=== PATIENT | female | born 1955 | race Caucasian/White ===

== ENCOUNTER → 2019-03-29 | Outpatient (CLI) | payer OTHER | LOC: OD 14:50 | PROVIDERS: ATTEND Surgery | DX: N63.20 Unspecified lump in the left breast, unspecified quadrant (principal) | CPT/HCPCS: 88305; 88313; 88341; 88342 ==

== ENCOUNTER → 2019-04-09 | Outpatient (CLI) | payer OTHER ==
--- NOTE | 2019-04-14 13:52 | RADIOLOGY REPORT (SQ) ---
EXAM DESCRIPTION: MRI BREAST BILATERAL W/WO COMPLETED DATE/TIME: 04/09/2019 9:42 am REASON FOR STUDY: N63.20 UNSPECIFIED LUMP IN THE LEFT BREAST, UNSPECIFIED QUADRANT N63.20 UNSPECIFI ED LUMP IN THE LEFT BREAST, UNSPECIFIED QUAD COMPARISON: Multiple reports. There are no prior images available. PATHOLOGIC CORRELATION: Carcinoma left breast. CONTRAST TYPE AND DOSE: 20 mL Dotarem. RENAL FUNCTION: Not required TECHNIQUE: MR imaging performed with a dedicated breast coil. Pre contrast T1 and T2 weighted images . Pre contrast and post contrast enhanced T1 weighted images with fat saturation. Subtraction images, 3D thick and thin MIPS, and kinetic analysis performed on an independent workstat ion. ([employer] workstation) Magnet strength: 1.5 T LIMITATIONS: None. FINDINGS: BREAST DENSITY: b. There are scattered areas of fibroglandular density. BACKGROUND PARENCHYMAL ENHANCEMENT:Minimal. RIGHT BREAST: Silicon implants. Intracapsular rupture with linguini spine and keyhole spine. No ext racapsular rupture. No extracapsular silicone. . No enhancing masses or suspicious lesions. No cl umped, regional/segmental ductal enhancement. CHEST WALL: Normal tissue planes. No abnormal internal mammary nodes. AXILLA: Normal axillary and retro-pectoral nodes. LEFT BREAST: Silicon implants. Intracapsular rupture with linguini sign and keyhole spine. There i s no extra capsular silicon however there is fluid surrounding the implant. Surgical changes lower i nner quadrant. No enhancing or suspicious masses. No clumped, regional/segmental ductal enhancemen t. CHEST WALL: Normal tissue planes. No abnormal internal mammary nodes. AXILLA: Normal axillary and retro-pectoral nodes. OTHER:No identified liver, bone, or lung lesions. No other significant incidental findings. IMPRESSION: No enhancing more worrisome lesions in either breast. There are bilateral intra capsular silicon implant ruptures, as evidenced by linguini sign. No extra capsular rupture. There is however fluid surrounding the implant on the left. BIRAD: RIGHT BREAST: 2 Benign findings. LEFT BREAST: 6 Known biopsy-proven malignancy. Appropriate action should be taken. RECOMMENDATION: RECOMMENDED FOLLOW-UP: Treatment protocol. TECHNICAL DOCUMENTATION: JOB ID: [id number] [employer]- All Rights Reserved Reading location - IP/workstation name: [email or web address]
== END ==
LOC: RAD 08:00
PROVIDERS: ATTEND Surgery
DX: C50.912 Malignant neoplasm of unspecified site of left female breast (principal)
CPT/HCPCS: 82565; 77049; A9576

== ENCOUNTER 2019-09-21 18:20 | Emergency (ER) | payer OTHER ==
[2019-09-21] MEDS ORDERED: NORMAL SALINE 1000 ML 1,000 ML IV ONE (20:54)
--- NOTE | 2019-09-21 21:03 | ER Document Report ---
ED Medical Screen (RME) - General Chief Complaint: Near Syncope Stated Complaint: ABDOMINAL PAIN,DIARRHEA Time Seen by Provider: 09/21/19 20:50 Primary Care Provider: SULTANA SPAIN MD [Primary Care Provider] - Follow up as needed Mode of Arrival: Wheelchair Information source: Patient Notes: 64-year-old female presents with history of breast cancer just started chemo this past Monday. Reports she was okay until when she started having abdominal cramps nausea. She reports explosive diarrhea today. Patient is worried she is dehydrated. I have greeted and performed a rapid initial assessment of this patient. A comprehensive ED assessment and evaluation of the patient, analysis of test results and completion of the medical decision making process will be conducted by additional ED providers. TRAVEL OUTSIDE OF THE [place] IN LAST 30 DAYS: No - Related Data Allergies/Adverse Reactions: Sulfa (Sulfonamide Antibiotics) Allergy (Verified 09/21/19 20:42) Home Medications: lisinorpil. citalopram. Impramine. levothyroxine. valacyclovir. methocarbamol. cetirizne. omeprazole. loperamide. Vitamin C. multiple vitamin. magnesium. chloride. calcium Past Medical History - Social History Chew tobacco use (# tins/day): No Drug Abuse: None Physical Exam - Vital signs Vitals: Temp Pulse Resp BP Pulse Ox 97.4 F 124 H 32 H 117/79 100 09/21/19 18:31 09/21/19 18:31 09/21/19 18:31 09/21/19 18:31 09/21/19 18:31 Course - Vital Signs Vital signs: Temp Pulse Resp BP Pulse Ox 97.4 F 124 H 32 H 117/79 100 09/21/19 18:31 09/21/19 18:31 09/21/19 18:31 09/21/19 18:31 09/21/19 18:31 Doctor's Discharge - Discharge Referrals: SULTANA SPAIN MD [Primary Care Provider] - Follow up as needed
[2019-09-21 22:20] LABS: HEMOGLOBIN 15.8 g/dL (12.0-15.5); MEAN CORPUSCULAR HEMOGLOBIN 32.6 pg (27.0-33.4); MEAN CORPUSCULAR HGB CONC 35.1 g/dL (32.0-36.0); MEAN CORPUSCULAR VOLUME 93 fl (80-97); PLATELET COUNT 301 10^3/uL (150-450); RED BLOOD COUNT 4.85 10^6/uL (3.72-5.28); WHITE BLOOD COUNT 3.2 10^3/uL (4.0-10.5)
[2019-09-21 22:34] LABS: ALBUMIN 4.4 g/dL (3.5-5.0); ALKALINE PHOSPHATASE 118 U/L (38-126); ANION GAP 13 (5-19); ASPARTATE AMINO TRANSFERASE 41 U/L (14-36); BILIRUBIN,TOTAL 0.8 mg/dL (0.2-1.3); BLOOD UREA NITROGEN 18 mg/dL (7-20); CALCIUM 9.9 mg/dL (8.4-10.2); CARBON DIOXIDE 23 mmol/L (22-30); CHLORIDE 96 mmol/L (98-107); GLUCOSE 93 mg/dL (75-110); POTASSIUM 3.9 mmol/L (3.6-5.0); TOTAL PROTEIN 7.1 g/dL (6.3-8.2)
[2019-09-21 22:40] LABS: ABSOLUTE LYMPHOCYTES# (MANUAL) 1.4 10^3/uL (0.5-4.7); BASOPHILS % (MANUAL) 0 % (0-2); EOSINOPHILS % (MANUAL) 0 % (0-6); LYMPHOCYTES % (MANUAL) 35 % (13-45); MONOCYTES % (MANUAL) 1 % (3-13); SEGMENTED NEUTROPHILS % (MAN) 55 % (42-78); TOTAL CELLS COUNTED 100
[2019-09-21 22:41] LABS: PLATELET COMMENT ADEQUATE; POIKILOCYTOSIS SLIGHT; TEAR DROP CELLS SLIGHT; TOXIC GRANULATION SLIGHT
[2019-09-22 00:35] LABS: APPEARANCE,URINE CLEAR; BILIRUBIN,URINE NEGATIVE (NEGATIVE); COLOR,URINE STRAW; GLUCOSE, URINE NEGATIVE (NEGATIVE); KETONES,URINE NEGATIVE (NEGATIVE); LEUKOCYTE ESTERASE,URINE NEGATIVE (NEGATIVE); NITRITE,URINE NEGATIVE (NEGATIVE); PROTEIN,URINE NEGATIVE (NEGATIVE); URINE SPECIFIC GRAVITY 1.003; UROBILINOGEN,URINE NEGATIVE mg/dL (<2.0)
[2019-09-22] MEDS ORDERED: NORMAL SALINE 1000 ML 1,000 ML IV ONE (01:13)
[2019-09-22] MEDS ORDERED: LOPERAMIDE HCL 2 MG CAPSULE PO ONE (01:16)
--- NOTE | 2019-09-22 01:21 | ER Document Report ---
ED General - General Chief Complaint: Near Syncope Stated Complaint: ABDOMINAL PAIN,DIARRHEA Time Seen by Provider: 09/21/19 20:50 Primary Care Provider: SULTANA HONEYCUTT MD [Primary Care Provider] - Follow up in 1 month Mode of Arrival: Wheelchair Notes: Patient is a 64-year-old female who presents to the emergency department with a chief complaint of diarrhea and abdominal pain. She states that she started chemotherapy this past Monday. States that she was normal until 2 days ago when she ended up having some nausea, abdominal cramping, and today she ended up having diarrhea. Patient was diagnosed she is currently being treated for breast cancer. TRAVEL OUTSIDE OF THE [place] IN LAST 30 DAYS: No - Related Data Allergies/Adverse Reactions: Sulfa (Sulfonamide Antibiotics) Allergy (Verified 09/21/19 20:42) Home Medications: lisinorpil. citalopram. Impramine. levothyroxine. valacy clovir. methocarbamol. cetirizne. omeprazole. loperamide. Vitamin C. multiple vitamin. magnesium. chloride. calcium Past Medical History - General Information source: Patient - Social History Smoking Status: Never Smoker Chew tobacco use (# tins/day): No Drug Abuse: None Family History: Reviewed & Not Pertinent Patient has suicidal ideation: No Patient has homicidal ideation: No Review of Systems - Review of Systems Notes: REVIEW OF SYSTEMS: CONSTITUTIONAL : Denies recent illness. Denies recent unintentional weight loss. Denies fever, chills, or sweats. EENT: Denies eye, ear, throat, or mouth pain, discharge, or symptoms. Denies nasal or sinus congestion. CARDIOVASCULAR: Denies chest pain. RESPIRATORY: Denies shortness of breath, cough, congestion, difficulty breathing, or wheezing. GASTROINTESTINAL: See HPI. GENITOURINARY: Denies difficulty urinating, burning, blood in urine, urgency or frequency. MUSCULOSKELETAL: Denies neck and back pain. Denies joint pain or swelling. SKIN: Denies rash, itchiness, or lesions HEMATOLOGIC : Denies easy bruising or bleeding. LYMPHATIC: Denies swollen, painful, enlarged glands. NEUROLOGICAL: Denies no numbness or tingling denies weakness. Denies headache. Denies altered mental status. Denies alteration in speech. PSYCHIATRIC: Denies stress, anxiety, alteration in sleep patterns, or depression. All other systems reviewed and negative. Physical Exam - Vital signs Vitals: Temp Pulse Resp BP Pulse Ox 97.4 F 124 H 32 H 117/79 100 09/21/19 18:31 09/21/19 18:31 09/21/19 18:31 09/21/19 18:31 09/21/19 18:31 - Notes Notes: PHYSICAL EXAMINATION: GENERAL: Appears well, healthy, well-nourished, no acute distress. HEAD: Normocephalic, atraumatic. EYES: PERRL, conjunctiva normal, all extraocular movements intact, sclera nonicteric ENT: Moist mucous membranes. NECK: Supple, no noticeable swelling, redness, rash. Normal range of motion. LUNGS: Equal breath sounds bilaterally and clear to auscultation. No wheezes rales or rhonchi. CARDIOVASCULAR: S1-S2, regular rate, regular rhythm. Radial pulses 2+, normal. ABDOMEN: Normoactive bowel sounds. Soft, mildly tender, no guarding, no rebound tenderness, and no masses palpated. EXTREMITIES: Normal strength and range of motion, no pitting or edema. No cyanosis. NEUROLOGICAL: Moves all extremities upon command. Strength 5/5 in all extremities. PSYCH: Normal mood, normal affect. SKIN: Warm, dry. No rash, lesions, ulcerations noted. Normal skin turgor. Course - Re-evaluation Re-evalutation: 09/22/19 01:[address] Barahona, the oncologist plastic surgeon. She states that this is a common side effect with the medications that she was given. She is recommending Imodium and Lomotil. Patient has neutropenia with a white blood cell count of 3200. Hemoglobin is 15.8 with hematocrit of 45, consistent with dehydration. Chemistries also show hyponatremia. She received 1 L of IV fluids and she will receive a second liter. Her lactic acid is 3.4. When she finishes her second liter of fluids, we will recheck her lactic acid. Her urinalysis is unremarkable. No urinary tract infection noted. 09/22/19 03:45 Patient's lactic acid has improved with IV fluids. She also has not had any diarrhea since receiving Imodium. Patient will follow-up with Dr. Honeycutt. Follow-up precautions were given. Verbal discharge instructions were given to the patient. They verbalized understanding. They are stable for discharge. - Vital Signs Vital signs: Temp Pulse Resp BP Pulse Ox 97.9 F 94 18 138/69 H 97 09/22/19 03:29 09/22/19 03:29 09/22/19 03:29 09/22/19 03:29 09/22/19 03:29 - Laboratory Result Diagrams: 09/21/19 22:00 09/21/19 22:00 Laboratory results interpreted by me: 09/21/19 09/21/19 09/21/19 22:00 22:00 22:00 WBC 3.2 L Hgb 15.8 H Monocytes % (Manual) 1 L Abs Monocytes (Manual) 0.0 L Sodium 132.4 L Chloride 96 L Est GFR (MDRD) Non-Af 57 L Lactic Acid 3.4 H AST 41 H Discharge - Discharge Clinical Impression: Near syncope Diarrhea Qualifiers: Diarrhea type: unspecified type Qualified Code(s): R19.7 - Diarrhea, unspecified Condition: Stable Disposition: HOME, SELF-CARE Additional Instructions: You were seen today in the emergency department for diarrhea and almost passing out. This is a common side effect with your chemotherapy. You received IV fluids here in the emergency department. You can terminate Imodium and lomotal to help with your symptoms. Please follow-up with Dr. Honeycutt in regards to this visit. Prescriptions: Diphenoxylate HCl/Atrop Sulf [Lomotil 2.5 mg Tablet] 1 tab PO Q6HP PRN #30 tablet PRN Reason: Referrals: SULTANA HONEYCUTT MD [Primary Care Provider] - Follow up in 1 month
[2019-09-22 03:32] VITALS: BP 138/69
== END 2019-09-22 04:05 | disposition home or self-care (01) ==
LOC: ER 18:20
DX: R55 Syncope and collapse (principal); R19.7 Diarrhea, unspecified; R10.9 Unspecified abdominal pain; C50.919 Malignant neoplasm of unspecified site of unspecified female breast; Z88.2 Allergy status to sulfonamides
CPT/HCPCS: 99284; 96360; 96361; 36415; 83605; 85025; 80053; 81001; J7030 ×2

== ENCOUNTER 2019-09-25 20:41 | Inpatient (IN) | payer OTHER ==
[2019-09-25] MEDS ORDERED: ACETAMINOPHEN 325 MG TABLET PO ONE (20:53)
[2019-09-25] MEDS ORDERED: CEFEPIME 2 GM/D5W RTU 2 GM/50 ML RTUPB IV ONE (20:55)
--- NOTE | 2019-09-25 21:10 | ER Document Report ---
ED General - General Chief Complaint: Fever Stated Complaint: FEVER,DIZZINESS,NAUSEA Time Seen by Provider: 09/25/19 20:53 TRAVEL OUTSIDE OF THE [place] IN LAST 30 DAYS: No - HPI Patient complains to provider of: fever Onset: Just prior to arrival Onset/Duration: Gradual Severity: Moderate Pain Level: 1 Context: Unfortunate 64 year old female arrives with fever chills, abd cramps and loose stool for a day. She is undergoing [facility] chemotherapy for breast cancer. She has received neupogen the last [address] Brewster office. Exacerbated by: Denies Relieved by: Denies - Related Data Allergies/Adverse Reactions: Sulfa (Sulfonamide Antibiotics) Allergy (Verified 09/21/19 20:42) Past Medical History - Social History Smoking Status: Unknown if Ever Smoked Family History: Reviewed & Not Pertinent Review of Systems - Review of Systems Constitutional: Chills, Fever EENT: No symptoms reported Cardiovascular: No symptoms reported Respiratory: No symptoms reported Gastrointestinal: No symptoms reported Genitourinary: No symptoms reported Female Genitourinary: No symptoms reported Musculoskeletal: No symptoms reported Skin: No symptoms reported Hematologic/Lymphatic: No symptoms reported Neurological/Psychological: No symptoms reported Physical Exam - Vital signs Vitals: Temp Pulse Resp BP Pulse Ox 103 F H 119 H 28 H 142/91 H 100 09/25/19 20:45 09/25/19 20:45 09/25/19 20:45 09/25/19 20:45 09/25/19 20:45 Interpretation: Normal - General General appearance: Appears well, Alert - HEENT Head: Normocephalic, Atraumatic Eyes: Normal Pupils: PERRL - Respiratory Respiratory status: No respiratory distress Chest status: Nontender Breath sounds: Normal Chest palpation: Normal - Cardiovascular Rhythm: Regular Heart sounds: Normal auscultation Murmur: No - Abdominal Inspection: Normal Distension: No distension Bowel sounds: Normal Tenderness: Nontender Organomegaly: No organomegaly - Back Back: Normal, Nontender - Extremities General upper extremity: Normal inspection, Nontender, Normal color, Normal ROM, Normal temperature General lower extremity: Normal inspection, Nontender, Normal color, Normal ROM, Normal temperature, Normal weight bearing. No: Sravanthi's sign - Neurological Neuro grossly intact: Yes Cognition: Normal Orientation: AAOx4 Eli Coma Scale Eye Opening: Spontaneous Eli Coma Scale Verbal: Oriented Eli Coma Scale Motor: Obeys Commands Eli Coma Scale Total: 15 Speech: Normal Motor strength normal: LUE, RUE, LLE, RLE Sensory: Normal - Psychological Associated symptoms: Normal affect, Normal mood - Skin Skin Temperature: Warm Skin Moisture: Dry Skin Color: Normal Course - Re-evaluation Re-evalutation: 09/26/19 00:05 MDM Delightful unfortunate 64 year old female undergoing chemo for breast cancer. Neurtopenic here and antibitics and septic workup are being rapidly carried out. She feels improved here. I have discussed with Dr. Jaimes and Maggie and they are happy to care for her as an inpatient. - Vital Signs Vital signs: Temp Pulse Resp BP Pulse Ox 99.8 F 106 H 20 134/71 H 92 09/25/19 22:46 09/25/19 21:47 09/25/19 22:02 09/25/19 22:00 09/25/19 22:02 - Laboratory Result Diagrams: 09/25/19 21:30 09/25/19 21:30 Laboratory results interpreted by me: 09/25/19 09/25/19 09/25/19 21:30 21:30 22:43 WBC 1.8 L RBC 3.62 L Hct 33.4 L Seg Neuts % (Manual) 3 L Band Neutrophils % 2 L Lymphocytes % (Manual) 75 H Monocytes % (Manual) 20 H Abs Neuts (Manual) 0.1 L Sodium 128.7 L Potassium 3.5 L Chloride 92 L Alkaline Phosphatase 132 H Urine Ketones 20 H - Diagnostic Test Radiology reviewed: Reports reviewed - EKG Interpretation by Me EKG shows normal: Sinus rhythm Rate: Normal Rhythm: NSR - Sinus Tachy Nl axis [address] elevation or depression my interpretation. Critical Care Note - Critical Care Note Total time excluding time spent on procedures (mins): 30 Discharge - Discharge Clinical Impression: Neutropenia associated with infection Diarrhea Qualifiers: Diarrhea type: unspecified type Qualified Code(s): R19.7 - Diarrhea, unspecified Condition: Good Disposition: ADMITTED INPATIENT Admitting Provider: Theodore (Hospitalist) Unit Admitted: Telemetry
[2019-09-25] MEDS: RINGERS SOLUTION,LACTATED 1,000 ML IV PRN ×2 (21:36→21:37)
--- NOTE | 2019-09-25 21:45 | RADIOLOGY REPORT (SQ) ---
XR CHEST 1 VIEW EXAM DATE: 09/25/2019 8:54 PM COUNTER ATTENDANT HISTORY: Fever. COMPARISON: None. FINDINGS: Normal heart size without pulmonary edema. No focal consolidation is identified. No pleural effusions or pneumothorax. No acute bony findings are seen. There is a right port catheter with the tip in the SVC. Bilateral breast implants are seen. IMPRESSION: No evidence of acute cardiopulmonary disease.
[2019-09-25 22:06] LABS: HEMATOCRIT 33.4 % (36.0-47.0); MEAN CORPUSCULAR HGB CONC 35.8 g/dL (32.0-36.0); MEAN CORPUSCULAR VOLUME 92 fl (80-97); PLATELET COUNT 181 10^3/uL (150-450); RED BLOOD COUNT 3.62 10^6/uL (3.72-5.28); RED CELL DISTRIBUTION WIDTH 12.6 % (11.5-14.0); WHITE BLOOD COUNT 1.8 10^3/uL (4.0-10.5)
[2019-09-25 22:21] LABS: ALBUMIN 3.5 g/dL (3.5-5.0); ALKALINE PHOSPHATASE 132 U/L (38-126); ANION GAP 11 (5-19); ASPARTATE AMINO TRANSFERASE 35 U/L (14-36); BILIRUBIN,DIRECT 0.3 mg/dL (0.0-0.4); BILIRUBIN,TOTAL 0.7 mg/dL (0.2-1.3); BLOOD UREA NITROGEN 9 mg/dL (7-20); CALCIUM 8.6 mg/dL (8.4-10.2); CARBON DIOXIDE 26 mmol/L (22-30); CHLORIDE 92 mmol/L (98-107); GLUCOSE 92 mg/dL (75-110); POTASSIUM 3.5 mmol/L (3.6-5.0); TOTAL PROTEIN 6.3 g/dL (6.3-8.2)
[2019-09-25 22:28] LABS: A TYPE INFLUENZA AG NEGATIVE (NEGATIVE); B INFLUENZA AG NEGATIVE (NEGATIVE)
[2019-09-25 22:29] LABS: ABSOLUTE LYMPHOCYTES# (MANUAL) 1.4 10^3/uL (0.5-4.7); ABSOLUTE MONOCYTES # (MANUAL) 0.4 10^3/uL (0.1-1.4); BAND NEUTROPHILS % (MANUAL) 2 % (3-5); BASOPHILS % (MANUAL) 0 % (0-2); EOSINOPHILS % (MANUAL) 0 % (0-6); MONOCYTES % (MANUAL) 20 % (3-13); RBC MORPHOLOGY COMMENT NORMO-CYTIC/CHROMIC; SEGMENTED NEUTROPHILS % (MAN) 3 % (42-78); TOTAL CELLS COUNTED 100
[2019-09-25 22:30] LABS: LYMPHOCYTES % (MANUAL) 75 % (13-45); PLATELET COMMENT ADEQUATE
[2019-09-25 23:01] LABS: APPEARANCE,URINE CLEAR; BILIRUBIN,URINE NEGATIVE (NEGATIVE); COLOR,URINE STRAW; GLUCOSE, URINE NEGATIVE (NEGATIVE); KETONES,URINE 20 mg/dL (NEGATIVE); LEUKOCYTE ESTERASE,URINE NEGATIVE (NEGATIVE); NITRITE,URINE NEGATIVE (NEGATIVE); PROTEIN,URINE NEGATIVE (NEGATIVE); URINE SPECIFIC GRAVITY 1.003; UROBILINOGEN,URINE NEGATIVE mg/dL (<2.0)
[2019-09-25] MEDS ORDERED: VANCOMYCIN HCL INJ 1000 MG VIAL IV ONE (23:36)
[2019-09-26] MEDS ORDERED: IPRATROPIUM/ALBUTEROL 0.5-2.5 MG/3 ML AMPUL NEB PRN (00:53)
[2019-09-26] MEDS ORDERED: ACETAMINOPHEN 325 MG TABLET PO PRN (00:53)
[2019-09-26] MEDS ORDERED: VANCOMYCIN HCL 0 MG in DEXTROSE 5%-WATER 250 ML IV NR (01:00)
[2019-09-26] MEDS ORDERED: NORMAL SALINE 1000 ML 1,000 ML IV SCH (01:00)
[2019-09-26 05:31] LABS: HEMATOCRIT 28.9 % (36.0-47.0); HEMOGLOBIN 10.5 g/dL (12.0-15.5); MEAN CORPUSCULAR HEMOGLOBIN 33.3 pg (27.0-33.4); MEAN CORPUSCULAR HGB CONC 36.3 g/dL (32.0-36.0); MEAN CORPUSCULAR VOLUME 92 fl (80-97); PLATELET COUNT 164 10^3/uL (150-450); RED BLOOD COUNT 3.16 10^6/uL (3.72-5.28); RED CELL DISTRIBUTION WIDTH 12.3 % (11.5-14.0); WHITE BLOOD COUNT 2.3 10^3/uL (4.0-10.5)
--- NOTE | 2019-09-26 05:39 | PDOC H&P ---
History of Present Illness Admission Date/PCP: 09/26/19 00:36 SULTANA SPAIN MD Patient complains of: Fever and abdominal pain History of Present Illness: ELIZABETH KYLE is a 64 year old female with a history of hypothyroid, depression and breast cancer on chemotherapy resulting in neutropenia. She is received Neupogen for neutropenia over the last 2 days. She is subsequently developed abdominal pain, diarrhea and fever prompting evaluation in the [facility] room where she is found to have neutropenic fever and hyponatremia. She started on vancomycin, cefepime and IV fluid bolus and referred to the hospitalist for admission. She denies ill contacts or suspect meals. Past Medical History Cardiac Medical History: Reports: Hypertension Psychiatric Medical History: Reports: Depression Past Surgical History Past Surgical History: Reports: Mastectomy, Tonsillectomy Social History Information Source: Patient, [facility] Records Smoking Status: Never Smoker Electronic Cigarette use?: No Frequency of Alcohol Use: Occasional Hx Recreational Drug Use: No Drugs: None Hx Prescription Drug Abuse: No - Advance Directive Resuscitation Status: Full Code Family History Family History: Hypertension Parental Family History Reviewed: Yes Children Family History Reviewed: Yes Sibling(s) Family History Reviewed.: Yes Medication/Allergy Home Medications: Diphenoxylate HCl/Atrop Sulf [Lomotil 2.5 mg Tablet] 1 tab PO Q6HP PRN #30 tablet 09/22/19 Allergies/Adverse Reactions: Sulfa (Sulfonamide Antibiotics) Allergy (Verified 09/21/19 20:42) Review of Systems Constitutional: PRESENT: as per HPI, anorexia, chills, fatigue, fever(s), weakness, weight loss Eyes: ABSENT: visual disturbances Ears: ABSENT: hearing changes Cardiovascular: ABSENT: chest pain, dyspnea on exertion, edema, orthropnea, palpitations Respiratory: ABSENT: cough, hemoptysis Gastrointestinal: PRESENT: as per HPI, abdominal pain, bloating, diarrhea. ABSENT: constipation, hematochezia Genitourinary: ABSENT: dysuria, hematuria Musculoskeletal: ABSENT: joint swelling Integumentary: ABSENT: rash, wounds Neurological: ABSENT: abnormal gait, abnormal speech, confusion, dizziness, focal weakness, syncope Psychiatric: ABSENT: anxiety, depression, homidical ideation, suicidal ideation Endocrine: ABSENT: cold intolerance, heat intolerance, polydipsia, polyuria Hematologic/Lymphatic: ABSENT: easy bleeding, easy bruising Physical Exam Vital Signs: Temp Pulse Resp BP Pulse Ox 98.0 F 95 18 121/68 97 09/26/19 01:59 09/26/19 01:59 09/26/19 01:59 09/26/19 01:59 09/26/19 01:59 Intake & Output 09/24/19 09/25/19 09/26/19 11:59 11:59 11:59 Intake Total 1067 Balance 1067 Weight 71.5 kg General appearance: PRESENT: cooperative, mild distress, well-developed, well- nourished Head exam: PRESENT: atraumatic, normocephalic Eye exam: PRESENT: conjunctiva pink, EOMI, PERRLA. ABSENT: scleral icterus Ear exam: PRESENT: normal external ear exam Mouth exam: PRESENT: moist, tongue midline Neck exam: ABSENT: carotid bruit, JVD, lymphadenopathy, thyromegaly Respiratory exam: PRESENT: clear to auscultation vashti. ABSENT: rales, rhonchi, wheezes Cardiovascular exam: PRESENT: RRR. ABSENT: diastolic murmur, rubs, systolic m urmur Pulses: PRESENT: normal dorsalis pedis pul Vascular exam: PRESENT: normal capillary refill GI/Abdominal exam: PRESENT: hyperactive bowel sounds, normal bowel sounds, soft, tenderness. ABSENT: distended, guarding, mass, organolmegaly, rebound Rectal exam: PRESENT: deferred Extremities exam: PRESENT: full ROM. ABSENT: calf tenderness, clubbing, pedal edema Neurological exam: PRESENT: alert, awake, oriented to person, oriented to place, oriented to time, oriented to situation, CN II-XII grossly intact. ABSENT: motor sensory deficit Psychiatric exam: PRESENT: appropriate affect, normal mood. ABSENT: homicidal ideation, suicidal ideation Skin exam: PRESENT: dry, intact, warm. ABSENT: cyanosis, rash Results Laboratory Results: 09/25/19 21:30 09/25/19 09/25/19 09/25/19 21:30 21:30 21:30 WBC 1.8 L RBC 3.62 L Hgb 12.0 Hct 33.4 L MCV 92 MCH 33.0 MCHC 35.8 RDW 12.6 Plt Count 181 Seg Neutrophils % Not Reportable Sodium 128.7 L Potassium 3.5 L Chloride 92 L Carbon Dioxide 26 Anion Gap 11 BUN 9 Creatinine 0.73 Est GFR ( Amer) > 60 Glucose 92 Lactic Acid 1.0 Calcium 8.6 Magnesium 1.6 Total Bilirubin 0.7 AST 35 Alkaline Phosphatase 132 H Total Protein 6.3 Albumin 3.5 Urine Color Urine Appearance Urine pH Ur Specific [place] Urine Protein Urine Glucose (UA) Urine Ketones Urine Blood Urine Nitrite Ur Leukocyte Esterase Urine WBC (Auto) Urine RBC (Auto) 09/25/19 22:43 WBC RBC Hgb Hct MCV MCH MCHC RDW Plt Count Seg Neutrophils % Sodium Potassium Chloride Carbon Dioxide Anion Gap BUN Creatinine Est GFR ( Amer) Glucose Lactic Acid Calcium Magnesium Total Bilirubin AST Alkaline Phosphatase Total Protein Albumin Urine Color STRAW Urine Appearance CLEAR Urine pH 7.0 Ur Specific [place] 1.003 Urine Protein NEGATIVE Urine Glucose (UA) NEGATIVE Urine Ketones 20 H Urine Blood NEGATIVE Urine Nitrite NEGATIVE Ur Leukocyte Esterase NEGATIVE Urine WBC (Auto) 0 Urine RBC (Auto) 0 Impressions: Chest X-Ray 09/25/19 20:54 IMPRESSION: No evidence of acute cardiopulmonary disease. Assessment and Plan - Diagnosis (1) Neutropenic fever Is this a current diagnosis for this admission?: Yes Plan: Cefepime, vancomycin, IV fluid challenge, neutropenic precautions, follow-up a.m. CBC and oncology consult (2) Hyponatremia Is this a current diagnosis for this admission?: Yes Plan: IV normal saline fluid challenge, follow-up chemistry (3) Neutropenia associated with infection Is this a current diagnosis for this admission?: Yes Plan: Infection versus chemotherapy-induced colitis. Obtain stool for studies if recurrence of diarrhea. - Time Time Spent with patient: 25-34 minutes - Inpatient Certification Medical Necessity: Need Close Monitoring Due to Risk of Patient Decompensation
[2019-09-26 06:16] LABS: ABSOLUTE LYMPHOCYTES# (MANUAL) 1.7 10^3/uL (0.5-4.7); ABSOLUTE MONOCYTES # (MANUAL) 0.5 10^3/uL (0.1-1.4); BASOPHILS % (MANUAL) 0 % (0-2); EOSINOPHILS % (MANUAL) 0 % (0-6); LYMPHOCYTES % (MANUAL) 72 % (13-45); MONOCYTES % (MANUAL) 22 % (3-13); SEGMENTED NEUTROPHILS % (MAN) 6 % (42-78); TOTAL CELLS COUNTED 100
[2019-09-26 06:23] LABS: OVALOCYTES SLIGHT; POIKILOCYTOSIS SLIGHT; TOXIC GRANULATION 1+
[2019-09-26 06:24] LABS: BURR CELLS SLIGHT; PLATELET COMMENT ADEQUATE
[2019-09-26] MEDS: HEPARIN SOD (PORCINE) 5,000 UNIT/ML 1 ML VIAL SUBCUT SCH ×3 (06:45→21:51)
--- NOTE | 2019-09-26 08:04 | PDOC CONSULTATION ---
Consultation Consult Date: 09/26/19 Attending physician:: DONATO TAYLOR Provider Consulted: SULTANA SPAIN Consult reason:: Hypotension, neutropenic fever, concern of sepsis in the setting of stage II breast cancer on adjuvant chemotherapy History of Present Illness Admission Date/PCP: 09/26/19 00:36 SULTANA SPAIN MD Patient complains of: Weakness, high fever, dehydration History of Present Illness: ELIZABETH KYLE is a 64 year old female with known history of stage II HER-2 positive breast cancer, recently started on adjuvant chemotherapy with PTCH (Perjeta, Taxotere, Carboplatin, Herceptin), received cycle #2 of that about 1 week ago. Called me yesterday with fever of 102, she was feeling diaphoretic, lethargic almost passing out, I instructed her to come to the ED, here she was hypotensive and tachycardic fitting sirs criteria, she was given quick hydration and started on cefepime 2 g IV after blood culture and urine culture were taken. Upon presentation her ANC was found to be 100 only, patient was febrile with a fever greater than 101, and patient was admitted with Sirs criteria as well as neutropenic fever. She is currently on broad-spectrum antibiotics. Feels a little bit better this morning. She unfortunately did not receive growth factor support as her insurance did not approve it initially unless she had an episode of neutropenic fever. Past Medical History Cardiac Medical History: Reports: Hypertension Malignancy Medical History: Reports: Breast Cancer Psychiatric Medical History: Reports: Depression Past Surgical History Past Surgical History: Reports: Mastectomy, Tonsillectomy Social History Information Source: Patient Smoking Status: Never Smoker Electronic Cigarette use?: No Frequency of Alcohol Use: Occasional Hx Recreational Drug Use: No Drugs: None Hx Prescription Drug Abuse: No - Advance Directive Resuscitation Status: Full Code Family History Family History: Hypertension Parental Family History Reviewed: Yes Children Family History Reviewed: Yes Sibling(s) Family History Reviewed.: Yes Medication/Allergy Home Medications: Diphenoxylate HCl/Atrop Sulf [Lomotil 2.5 mg Tablet] 1 tab PO Q6HP PRN #30 tablet 09/22/19 Allergies/Adverse Reactions: Sulfa (Sulfonamide Antibiotics) Allergy (Verified 09/21/19 20:42) Review of Systems Constitutional: ABSENT: chills, fever(s), headache(s), weight gain, weight loss Eyes: ABSENT: visual disturbances Ears: ABSENT: hearing changes Cardiovascular: ABSENT: chest pain, dyspnea on exertion, edema, orthropnea, palpitations Respiratory: ABSENT: cough, hemoptysis Gastrointestinal: ABSENT: abdominal pain, constipation, diarrhea, hematemesis, hematochezia, nausea, vomiting Genitourinary: ABSENT: dysuria, hematuria Musculoskeletal: ABSENT: joint swelling Integumentary: ABSENT: rash, wounds Neurological: ABSENT: abnormal gait, abnormal speech, confusion, dizziness, focal weakness, syncope Psychiatric: ABSENT: anxiety, depression, homidical ideation, suicidal ideation Endocrine: ABSENT: cold intolerance, heat intolerance, polydipsia, polyuria Hematologic/Lymphatic: ABSENT: easy bleeding, easy bruising Physical Exam Vital Signs: Temp Pulse Resp BP Pulse Ox 98.0 F 95 18 121/68 97 09/26/19 01:59 09/26/19 01:59 09/26/19 01:59 09/26/19 01:59 09/26/19 01:59 Intake & Output 09/25/19 09/26/19 09/27/19 06:59 06:59 06:59 Intake Total 1067 Balance 1067 Weight 72.1 kg General appearance: PRESENT: no acute distress, well-developed, well-nourished Head exam: PRESENT: atraumatic, normocephalic Eye exam: PRESENT: conjunctiva pink, EOMI, PERRLA. ABSENT: scleral icterus Ear exam: PRESENT: normal external ear exam Mouth exam: PRESENT: moist, tongue midline Neck exam: ABSENT: carotid bruit, JVD, lymphadenopathy, thyromegaly Respiratory exam: PRESENT: clear to auscultation vashti. ABSENT: rales, rhonchi, wheezes Cardiovascular exam: PRESENT: RRR. ABSENT: diastolic murmur, rubs, systolic murmur Pulses: PRESENT: normal dorsalis pedis pul Vascular exam: PRESENT: normal capillary refill GI/Abdominal exam: PRESENT: normal bowel sounds, soft. ABSENT: distended, gua rding, mass, organolmegaly, rebound, tenderness Rectal exam: PRESENT: deferred Extremities exam: PRESENT: full ROM. ABSENT: calf tenderness, clubbing, pedal edema Neurological exam: PRESENT: alert, awake, oriented to person, oriented to place, oriented to time, oriented to situation, CN II-XII grossly intact. ABSENT: jazmyn r sensory deficit Psychiatric exam: PRESENT: appropriate affect, normal mood. ABSENT: homicidal ideation, suicidal ideation Skin exam: PRESENT: dry, intact, warm. ABSENT: cyanosis, rash Results Laboratory Results: 09/26/19 04:46 09/25/19 21:30 09/25/19 09/25/19 09/25/19 21:30 21:30 21:30 WBC 1.8 L RBC 3.62 L Hgb 12.0 Hct 33.4 L MCV 92 MCH 33.0 MCHC 35.8 RDW 12.6 Plt Count 181 Seg Neutrophils % Not Reportable Sodium 128.7 L Potassium 3.5 L Chloride 92 L Carbon Dioxide 26 Anion Gap 11 BUN 9 Creatinine 0.73 Est GFR ( Amer) > 60 Glucose 92 Lactic Acid 1.0 Calcium 8.6 Magnesium 1.6 Total Bilirubin 0.7 AST 35 Alkaline Phosphatase 132 H Total Protein 6.3 Albumin 3.5 Urine Color Urine Appearance Urine pH Ur Specific [place] Urine Protein Urine Glucose (UA) Urine Ketones Urine Blood Urine Nitrite Ur Leukocyte Esterase Urine WBC (Auto) Urine RBC (Auto) 09/25/19 09/26/19 22:43 04:46 WBC 2.3 L RBC 3.16 L Hgb 10.5 L Hct 28.9 L MCV 92 MCH 33.3 MCHC 36.3 H RDW 12.3 Plt Count 164 Seg Neutrophils % Not Reportable Sodium Potassium Chloride Carbon Dioxide Anion Gap BUN Creatinine Est GFR ( Amer) Glucose Lactic Acid Calcium Magnesium Total Bilirubin AST Alkaline Phosphatase Total Protein Albumin Urine Color STRAW Urine Appearance CLEAR Urine pH 7.0 Ur Specific [place] 1.003 Urine Protein NEGATIVE Urine Glucose (UA) NEGATIVE Urine Ketones 20 H Urine Blood NEGATIVE Urine Nitrite NEGATIVE Ur Leukocyte Esterase NEGATIVE Urine WBC (Auto) 0 Urine RBC (Auto) 0 Impressions: Chest X-Ray 09/25/19 20:54 IMPRESSION: No evidence of acute cardiopulmonary disease. Assessment & Plan - Diagnosis (1) SIRS due to infectious process without acute organ dysfunction Is this a current diagnosis for this admission?: Yes Plan: Fit sirs criteria upon admission, continue with aggressive hydration, antipyretics as needed. (2) Neutropenia associated with infection Is this a current diagnosis for this admission?: Yes Plan: Continue with broad-spectrum antibiotics with cefepime and vancomycin, I started patient on Neupogen equivalent, patient will continue with vancomycin until cultures are negative for 48 hours. Thereafter vancomycin should be discontinued. Cefepime will continue until ANC is greater than 1000. (3) Diarrhea Qualifiers: Diarrhea type: unspecified type Qualified Code(s): R19.7 - Diarrhea, unspecified Is this a current diagnosis for this admission?: Yes Plan: Likely secondary to the Taxotere chemotherapy but infection possible, stool for C. difficile pending. (4) Hyponatremia Is this a current diagnosis for this admission?: Yes Plan: Secondary to poor hydration over the last 3 to 4 days. Continue with hydration it should correct. (5) Breast cancer Qualifiers: Breast location: unspecified site of breast Estrogen receptor status: negative Patient sex: female Laterality: unspecified laterality Qualified Code(s): C50.919 - Malignant neoplasm of unspecified site of unspecified female breast; Z17.1 - Estrogen receptor negative status [ER-] Is this a current diagnosis for this admission?: Yes Plan: Patient with locally advanced breast cancer status post cycle #1 of chemotherapy will need further chemotherapy as an outpatient, we will get Neulasta approved as an outpatient. Now that she has had neutropenic fever, insurance will approve. - Time Time Spent: Greater than 70 Minutes - Inpatient Certification Based on my medical assessment, after consideration of the patient's comorbidities, presenting symptoms, or acuity I expect that the services needed warrant INPATIENT care.: Yes I certify that my determination is in accordance with my understanding of Medicare's requirements for reasonable and necessary INPATIENT services [42 CFR 412.3e].: Yes Medical Necessity: Need For IV Fluids, Need for IV Antibiotics, Risk of Complication if Not Cared For in Hospital
--- NOTE | 2019-09-26 09:19 | EKG REPORT ---
SEVERITY:- ABNORMAL ECG - SINUS TACHYCARDIA : Confirmed by: Evelina Ibarra 26-Sep-2019 09:18:02
[2019-09-26] MEDS: DOCUSATE SODIUM 100 MG/10 ML UDC PO SCH ×2 (09:28→17:21)
[2019-09-26] MEDS: CEFEPIME 1 GM/D5W RTU 1 GM/50 ML RTUPB IV SCH ×2 (09:29→21:45)
[2019-09-26] MEDS: VANCOMYCIN HCL 750 MG in DEXTROSE 5%-WATER 250 ML IV SCH ×2 (10:38→21:45)
[2019-09-26 11:12] LABS: PATH REVIEW PATHOLOGIST REVIEWED
[2019-09-26] MEDS ORDERED: FILGRASTIM INJ 480 MCG/1.6 ML VIAL SUBCUT SCH (13:00)
[2019-09-26] MEDS: NORMAL SALINE 1000 ML 1,000 ML IV PRN (13:00)
[2019-09-26] MEDS ORDERED: METHOCARBAMOL 500 MG TABLET PO PRN (13:44)
[2019-09-26] MEDS: VALACYCLOVIR HCL 500 MG TABLET PO SCH (14:55)
[2019-09-26] MEDS: CITALOPRAM HYDROBROMIDE 20 MG TABLET PO SCH (14:55)
[2019-09-26] MEDS ORDERED: BUTALB/ACETAMINOPHEN/CAFFEINE 1 TAB EACH PO ONE (15:00)
[2019-09-26 15:33] LABS: ANION GAP 7 (5-19); BLOOD UREA NITROGEN 6 mg/dL (7-20); CALCIUM 8.2 mg/dL (8.4-10.2); CARBON DIOXIDE 27 mmol/L (22-30); CHLORIDE 100 mmol/L (98-107); GLUCOSE 105 mg/dL (75-110); POTASSIUM 3.8 mmol/L (3.6-5.0)
[2019-09-26] MEDS: IMIPRAMINE HCL 25 MG TABLET PO SCH (21:45)
[2019-09-27] MEDS: LEVOTHYROXINE SODIUM 0.1 MG TABLET PO SCH (05:32)
[2019-09-27 05:49] LABS: HEMATOCRIT 27.8 % (36.0-47.0); MEAN CORPUSCULAR HEMOGLOBIN 33.3 pg (27.0-33.4); MEAN CORPUSCULAR HGB CONC 36.1 g/dL (32.0-36.0); MEAN CORPUSCULAR VOLUME 92 fl (80-97); PLATELET COUNT 173 10^3/uL (150-450); RED BLOOD COUNT 3.02 10^6/uL (3.72-5.28); RED CELL DISTRIBUTION WIDTH 12.5 % (11.5-14.0)
[2019-09-27 06:00] LABS: ALBUMIN 2.8 g/dL (3.5-5.0); ALKALINE PHOSPHATASE 110 U/L (38-126); ANION GAP 8 (5-19); ASPARTATE AMINO TRANSFERASE 39 U/L (14-36); BILIRUBIN,DIRECT 0.3 mg/dL (0.0-0.4); BILIRUBIN,TOTAL 0.3 mg/dL (0.2-1.3); BLOOD UREA NITROGEN 6 mg/dL (7-20); CALCIUM 8.3 mg/dL (8.4-10.2); CARBON DIOXIDE 29 mmol/L (22-30); CHLORIDE 100 mmol/L (98-107); GLUCOSE 93 mg/dL (75-110); POTASSIUM 3.1 mmol/L (3.6-5.0); TOTAL PROTEIN 5.5 g/dL (6.3-8.2)
[2019-09-27 06:35] LABS: WHITE BLOOD COUNT 5.7 10^3/uL (4.0-10.5)
[2019-09-27 06:39] LABS: ABSOLUTE LYMPHOCYTES# (MANUAL) 1.9 10^3/uL (0.5-4.7); ABSOLUTE MONOCYTES # (MANUAL) 0.5 10^3/uL (0.1-1.4); BAND NEUTROPHILS % (MANUAL) 6 % (3-5); BASOPHILS % (MANUAL) 0 % (0-2); EOSINOPHILS % (MANUAL) 0 % (0-6); LYMPHOCYTES % (MANUAL) 32 % (13-45); MONOCYTES % (MANUAL) 9 % (3-13); SEGMENTED NEUTROPHILS % (MAN) 52 % (42-78); TOTAL CELLS COUNTED 100
[2019-09-27 06:40] LABS: PLATELET COMMENT ADEQUATE; RBC MORPHOLOGY COMMENT NORMO-CYTIC/CHROMIC
[2019-09-27] MEDS: HEPARIN SOD (PORCINE) 5,000 UNIT/ML 1 ML VIAL SUBCUT SCH ×3 (06:50→21:19)
--- NOTE | 2019-09-27 07:55 | PDOC PROGRESS REPORT ---
Subjective Progress Note for:: 09/27/19 Subjective:: Pt doing better, c/o of sores in mouth, physical exam shows grade 2 mucositis. Will start pee's magic. Wt ct now w/ ANC>1000, so d/c'd neupogen, neutropenic precautions and vancomycin. Pt still quite weak so will need another 24 hours of fluids and will cont cefepime until tomorrow. Encouraged increased PO intake as she feels better. Reason For Visit: NEUTROPENIC FEVER Physical Exam Vital Signs: Temp Pulse Resp BP Pulse Ox 98.3 F 99 17 106/57 L 96 09/26/19 23:56 09/27/19 02:00 09/26/19 23:56 09/26/19 23:56 09/26/19 23:56 Intake & Output 09/26/19 09/27/19 09/28/19 06:59 06:59 06:59 Intake Total 1067 3120 Output Total 200 Balance 1067 2920 Weight 72.1 kg 75.6 kg General appearance: PRESENT: no acute distress, well-developed, well-nourished Head exam: PRESENT: atraumatic, normocephalic Eye exam: PRESENT: conjunctiva pink, EOMI, PERRLA. ABSENT: scleral icterus Ear exam: PRESENT: normal external ear exam Mouth exam: PRESENT: moist, tongue midline Neck exam: ABSENT: carotid bruit, JVD, lymphadenopathy, thyromegaly Respiratory exam: PRESENT: clear to auscultation vashti. ABSENT: rales, rhonchi, wheezes Cardiovascular exam: PRESENT: RRR. ABSENT: diastolic murmur, rubs, systolic murmur Pulses: PRESENT: normal dorsalis pedis pul Vascular exam: PRESENT: normal capillary refill GI/Abdominal exam: PRESENT: normal bowel sounds, soft. ABSENT: distended, guarding, mass, organolmegaly, rebound, tenderness Rectal exam: PRESENT: deferred Extremities exam: PRESENT: full ROM. ABSENT: calf tenderness, clubbing, pedal edema Neurological exam: PRESENT: alert, awake, oriented to person, oriented to place, oriented to time, oriented to situation, CN II-XII grossly intact. ABSENT: motor sensory deficit Psychiatric exam: PRESENT: appropriate affect, normal mood. ABSENT: homicidal ideation, suicidal ideation Skin exam: PRESENT: dry, intact, warm. ABSENT: cyanosis, rash Results Laboratory Results: 09/27/19 04:36 09/27/19 04:36 09/26/19 09/27/19 09/27/19 14:46 04:36 04:36 WBC 5.7 D RBC 3.02 L Hgb 10.0 L Hct 27.8 L MCV 92 MCH 33.3 MCHC 36.1 H RDW 12.5 Plt Count 173 Seg Neutrophils % Not Reportable Sodium 133.6 L 136.7 L Potassium 3.8 3.1 L Chloride 100 100 Carbon Dioxide 27 29 Anion Gap 7 8 BUN 6 L 6 L Creatinine 0.61 0.65 Est GFR ( Amer) > 60 > 60 Glucose 105 93 Calcium 8.2 L 8.3 L Magnesium 1.6 Total Bilirubin 0.3 AST 39 H Alkaline Phosphatase 110 Total Protein 5.5 L Albumin 2.8 L Impressions: Chest X-Ray 09/25/19 20:54 IMPRESSION: No evidence of acute cardiopulmonary disease. Assessment & Plan - Diagnosis (1) SIRS due to infectious process without acute organ dysfunction Is this a current diagnosis for this admission?: Yes Plan: Resolving, plan as above (2) Neutropenia associated with infection Is this a current diagnosis for this admission?: Yes Plan: Resolving, d/c neupogen/neutropenic precautions (3) Diarrhea Qualifiers: Diarrhea type: unspecified type Qualified Code(s): R19.7 - Diarrhea, unspecified Is this a current diagnosis for this admission?: Yes Plan: Improved (4) Hyponatremia Is this a current diagnosis for this admission?: Yes Plan: improved (5) Breast cancer Qualifiers: Breast location: unspecified site of breast Estrogen receptor status: negative Patient sex: female Laterality: unspecified laterality Qualified Code(s): C50.919 - Malignant neoplasm of unspecified site of unspecified female breast; Z17.1 - Estrogen receptor negative status [ER-] Is this a current diagnosis for this admission?: Yes Plan: Cont chemo as outpt will be using neulasta support w/ next cyclc - Time Time Spent with patient: 35 or more minutes
[2019-09-27] MEDS: MAGNESIUM OXIDE 400 MG TABLET PO SCH (09:14)
[2019-09-27] MEDS: CITALOPRAM HYDROBROMIDE 20 MG TABLET PO SCH (09:15)
[2019-09-27] MEDS: VALACYCLOVIR HCL 500 MG TABLET PO SCH (09:16)
[2019-09-27] MEDS: MULTIVITAMIN TABLET PO SCH (09:17)
[2019-09-27] MEDS: LISINOPRIL 10 MG TABLET PO SCH (09:17)
[2019-09-27] MEDS: ASCORBIC ACID 500 MG TABLET PO SCH (09:17)
[2019-09-27] MEDS: CEFEPIME 1 GM/D5W RTU 1 GM/50 ML RTUPB IV SCH ×2 (09:18→21:18)
[2019-09-27] MEDS: DOCUSATE SODIUM 100 MG/10 ML UDC PO SCH ×2 (09:19→17:11)
[2019-09-27] MEDS ORDERED: MAGNESIUM CHLORIDE PO SCH (10:00)
[2019-09-27] MEDS ORDERED: POTASSIUM CHLORIDE 10 MEQ TABLET.ER PO ONE (10:00)
[2019-09-27] MEDS ORDERED: (PENDING PHARMACY ID) (Citalopram Hydrobromide [Citalopram Hbr] 40 MG) PO SCH (10:00)
[2019-09-27] MEDS ORDERED: (PENDING PHARMACY ID) (Multivit-Min/Iron/Folic/Lutein [Centrum Silver Women Tablet] 1 EACH PO SCH (10:00)
[2019-09-27] MEDS: NYSTATIN/DEXAMETH/DIPHEN SUSP 120 ML PO SCH ×2 (14:22→21:19)
--- NOTE | 2019-09-27 14:37 | CDI QUERY ---
CDI Query CDI Review: Dear Dr. Jaimes or Associate : To better reflect your patients severity of illness, morbidity, and resource utilization Please specify and document in the Progress Notes and Discharge Summary if you are monitoring / treating / evaluating any of the following conditions: The terms probable, suspected, likely, possible or still to be ruled out may be used if you are unable to determine the exact nature of a condition. Query Clinical indicators Sepsis 2/2 colitis Sepsis 2/2 unknown infection Sepsis ruled out Unable to determine Other VS in ED: Temp 103 F Pulse 119 Resp 28 BP 142/91 O2 100% WBC 1.8 ED Note: Neurtopenic here and antibiotics and septic workup are being rapidly carried out Per Hosp Progress Notes: Neutropenia associated with infection Is this a current diagnosis for this admission?: Yes Plan: Infection versus chemotherapy-induced colitis. Consult Notes: Consult reason:: Hypotension, neutropenic fever, concern of sepsis in the setting of stage II breast cancer on adjuvant chemotherapy SIRS due to infectious process without acute organ dysfunction Is this a current diagnosis for this admission?: Yes Plan: Fit sirs criteria upon admission, continue with aggressive hydration, antipyretics as needed. Thank you, Clinical Documentation Physician Advisors FARHAT Rowe RN FARHAT Culeln Office [phone] Office [phone]
--- NOTE | 2019-09-27 15:04 | CDI QUERY ---
CDI Query CDI Review: Dear Provider Dr. Jaimes and Associates: To better reflect your patients severity of illness, morbidity, and resource utilization Please specify and document in the Progress Notes and Discharge Summary if you are monitoring / treating / evaluating any of the following conditions: The terms probable, suspected, likely, possible or still to be ruled out may be used if you are unable to determine the exact nature of a condition. Query Clinical indicators If known, please indicate location and laterality of breast cancer (5) Breast cancer Qualifiers: Breast location: unspecified site of breast Estrogen receptor status: negative Patient sex: female Laterality: unspecified laterality Qualified Code(s): C50.919 - Malignant neoplasm of unspecified site of unspecified female breast; Z17.1 - Estrogen receptor negative status [ER-] Thank you, Clinical Documentation Physician Advisors FARHAT Rowe RN, BSN RN Office [phone] Office [phone]
--- NOTE | 2019-09-27 16:21 | PDOC PROGRESS REPORT ---
Subjective Progress Note for:: 09/27/19 Subjective:: ELIZABETH KYLE is a 64 year old female with a history of hypothyroid, depression and breast cancer on chemotherapy resulting in neutropenia. She is received Neupogen for neutropenia over the last 2 days. She is subsequently developed abdominal pain, diarrhea and fever prompting evaluation in the emergency room where she is found to have neutropenic fever and hyponatremia. She started on vancomycin, cefepime and IV fluid bolus and referred to the hospitalist for admission. She denies ill contacts or suspect meals. 09/27/2019. No acute events overnight. Still complaining of feeling weak, has not had any diarrhea, complaining of mouth sores, denies any fever, chills, nausea, vomiting, diarrhea, constipation or any urinary symptoms. Reason For Visit: NEUTROPENIC FEVER Physical Exam Vital Signs: Temp Pulse Resp BP Pulse Ox 98.2 F 97 15 132/72 H 97 09/27/19 07:48 09/27/19 11:03 09/27/19 11:03 09/27/19 07:48 09/27/19 07:48 Intake & Output 09/26/19 09/27/19 09/28/19 06:59 06:59 06:59 Intake Total 1067 3120 50 Output Total 200 Balance 1067 2920 50 Weight 72.1 kg 75.6 kg General appearance: PRESENT: no acute distress, well-developed, well-nourished Head exam: PRESENT: atraumatic, normocephalic Respiratory exam: PRESENT: clear to auscultation vashti. ABSENT: rales, rhonchi, wheezes Cardiovascular exam: PRESENT: RRR. ABSENT: diastolic murmur, rubs, systolic murmur GI/Abdominal exam: PRESENT: normal bowel sounds, soft. ABSENT: distended, guarding, mass, organolmegaly, rebound, tenderness Neurological exam: PRESENT: alert, awake, oriented to person, oriented to place, oriented to time, oriented to situation, CN II-XII grossly intact. ABSENT: motor sensory deficit Skin exam: PRESENT: dry, intact, warm. ABSENT: cyanosis, rash Results Laboratory Results: 09/27/19 04:36 09/27/19 04:36 09/27/19 09/27/19 04:36 04:36 WBC 5.7 D RBC 3.02 L Hgb 10.0 L Hct 27.8 L MCV 92 MCH 33.3 MCHC 36.1 H RDW 12.5 Plt Count 173 Seg Neutrophils % Not Reportable Sodium 136.7 L Potassium 3.1 L Chloride 100 Carbon Dioxide 29 Anion Gap 8 BUN 6 L Creatinine 0.65 Est GFR ( Amer) > 60 Glucose 93 Calcium 8.3 L Magnesium 1.6 Total Bilirubin 0.3 AST 39 H Alkaline Phosphatase 110 Total Protein 5.5 L Albumin 2.8 L Impressions: Chest X-Ray 09/25/19 20:54 IMPRESSION: No evidence of acute cardiopulmonary disease. Assessment and Plan - Diagnosis (1) Neutropenic fever Is this a current diagnosis for this admission?: Yes Plan: Cefepime, vancomycin, IV fluid challenge, neutropenic precautions, follow-up a.m. CBC and oncology consult (2) SIRS (systemic inflammatory response syndrome) Is this a current diagnosis for this admission?: Yes Plan: Presented with fever, tachypnea, tachycardia, and neutropenia most likely due to neutropenic fever and hypovolemia due to diarrhea caused by chemotherapy. Continue aggressive volume cessation, limited by volume status, antipyretics, broad-spectrum empiric IV antibiotics. Sputum, blood, urine and stool culture. (3) Diarrhea Qualifiers: Diarrhea type: unspecified type Qualified Code(s): R19.7 - Diarrhea, unspecified Is this a current diagnosis for this admission?: Yes Plan: Likely due to complication of chemotherapy. Resolved. Was admitted to floor, electrolytes and volume status monitored. (4) Hyponatremia Is this a current diagnosis for this admission?: Yes Plan: Resolved. Likely due to GI losses. Sodium WNL at the time of discharge. (5) Neutropenia associated with infection Is this a current diagnosis for this admission?: Yes Plan: No sign of infection patient was most likely due to chemotherapy neutropenia. All cultures remain negative. (6) Breast cancer Qualifiers: Breast location: overlapping sites of breast Estrogen receptor status: negative Patient sex: female Laterality: right Qualified Code(s): C50.811 - Malignant neoplasm of overlapping sites of right female breast; Z17.1 - Estrogen receptor negative status [ER-] Is this a current diagnosis for this admission?: Yes Plan: History of a stage II currently advanced breast cancer, HER-2 positive, Estrogen receptor negative status post bilateral mastectomy. Recently started on adjuvant chemotherapy with PTCH (Perjeta, Taxotere, carboplatin, Herceptin) followed by Dr. Honeycutt as outpatient. Oncology on board. Recommendations noted. Outpatient oncology and PCP follow- up. (7) Sepsis Qualifiers: Sepsis acute organ dysfunction status: unspecified Is this a current diagnosis for this admission?: Yes Plan: Ruled out. Presented with fever, tachypnea, tachycardia, and neutropenia most likely due to neutropenic fever and hypovolemia due to diarrhea caused by chemotherapy.
[2019-09-27] MEDS: NORMAL SALINE 1000 ML 1,000 ML IV PRN (21:18)
[2019-09-27] MEDS: IMIPRAMINE HCL 25 MG TABLET PO SCH (21:19)
[2019-09-28 05:53] LABS: HEMATOCRIT 30.6 % (36.0-47.0); HEMOGLOBIN 10.9 g/dL (12.0-15.5); MEAN CORPUSCULAR HEMOGLOBIN 33.2 pg (27.0-33.4); MEAN CORPUSCULAR HGB CONC 35.5 g/dL (32.0-36.0); MEAN CORPUSCULAR VOLUME 94 fl (80-97); PLATELET COUNT 179 10^3/uL (150-450); RED BLOOD COUNT 3.27 10^6/uL (3.72-5.28); RED CELL DISTRIBUTION WIDTH 12.6 % (11.5-14.0); WHITE BLOOD COUNT 7.5 10^3/uL (4.0-10.5)
[2019-09-28 06:00] LABS: ALKALINE PHOSPHATASE 152 U/L (38-126); ANION GAP 6 (5-19); ASPARTATE AMINO TRANSFERASE 55 U/L (14-36); BILIRUBIN,TOTAL 0.2 mg/dL (0.2-1.3); BLOOD UREA NITROGEN 7 mg/dL (7-20); CALCIUM 8.7 mg/dL (8.4-10.2); CARBON DIOXIDE 27 mmol/L (22-30); CHLORIDE 105 mmol/L (98-107); GLUCOSE 86 mg/dL (75-110); POTASSIUM 3.8 mmol/L (3.6-5.0); TOTAL PROTEIN 5.6 g/dL (6.3-8.2)
[2019-09-28] MEDS: HEPARIN SOD (PORCINE) 5,000 UNIT/ML 1 ML VIAL SUBCUT SCH (06:01)
[2019-09-28] MEDS: LEVOTHYROXINE SODIUM 0.1 MG TABLET PO SCH (06:01)
[2019-09-28] MEDS: NYSTATIN/DEXAMETH/DIPHEN SUSP 120 ML PO SCH (06:02)
[2019-09-28 06:28] LABS: ABSOLUTE LYMPHOCYTES# (MANUAL) 2.2 10^3/uL (0.5-4.7); ABSOLUTE MONOCYTES # (MANUAL) 0.6 10^3/uL (0.1-1.4); BAND NEUTROPHILS % (MANUAL) 7 % (3-5); BASOPHILS % (MANUAL) 0 % (0-2); EOSINOPHILS % (MANUAL) 0 % (0-6); LYMPHOCYTES % (MANUAL) 27 % (13-45); MONOCYTES % (MANUAL) 8 % (3-13); PLATELET COMMENT ADEQUATE; SEGMENTED NEUTROPHILS % (MAN) 56 % (42-78); TOTAL CELLS COUNTED 100
[2019-09-28 06:29] LABS: RBC MORPHOLOGY COMMENT NORMO-CYTIC/CHROMIC
--- NOTE | 2019-09-28 10:19 | PDOC PROGRESS REPORT ---
Subjective Progress Note for:: 09/28/19 Subjective:: No acute events overnight, patient is doing better. Reason For Visit: NEUTROPENIC FEVER Physical Exam Vital Signs: Temp Pulse Resp BP Pulse Ox 97.6 F 102 H 17 119/64 96 09/28/19 04:17 09/28/19 07:00 09/28/19 04:17 09/28/19 04:17 09/28/19 04:17 Intake & Output 09/27/19 09/28/19 09/29/19 06:59 06:59 06:59 Intake Total 3120 840 Output Total 200 Balance 2920 840 Weight 75.6 kg 76.3 kg General appearance: PRESENT: no acute distress, well-developed, well-nourished Head exam: PRESENT: atraumatic, normocephalic Eye exam: PRESENT: conjunctiva pink, EOMI, PERRLA. ABSENT: scleral icterus Ear exam: PRESENT: normal external ear exam Mouth exam: PRESENT: moist, tongue midline Neck exam: ABSENT: carotid bruit, JVD, lymphadenopathy, thyromegaly Respiratory exam: PRESENT: clear to auscultation vashti. ABSENT: rales, rhonchi, wheezes Cardiovascular exam: PRESENT: RRR. ABSENT: diastolic murmur, rubs, systolic murmur Pulses: PRESENT: normal dorsalis pedis pul Vascular exam: PRESENT: normal capillary refill GI/Abdominal exam: PRESENT: normal bowel sounds, soft. ABSENT: distended, guarding, mass, organolmegaly, rebound, tenderness Rectal exam: PRESENT: deferred Extremities exam: PRESENT: full ROM. ABSENT: calf tenderness, clubbing, pedal edema Neurological exam: PRESENT: alert, awake, oriented to person, oriented to place, oriented to time, oriented to situation, CN II-XII grossly intact. ABSENT: motor sensory deficit Psychiatric exam: PRESENT: appropriate affect, normal mood. ABSENT: homicidal ideation, suicidal ideation Skin exam: PRESENT: dry, intact, warm. ABSENT: cyanosis, rash Results Laboratory Results: 09/28/19 05:09 09/28/19 05:09 09/28/19 09/28/19 05:09 05:09 WBC 7.5 RBC 3.27 L Hgb 10.9 L Hct 30.6 L MCV 94 MCH 33.2 MCHC 35.5 RDW 12.6 Plt Count 179 Seg Neutrophils % Not Reportable Sodium 137.5 Potassium 3.8 Chloride 105 Carbon Dioxide 27 Anion Gap 6 BUN 7 Creatinine 0.62 Est GFR ( Amer) > 60 Glucose 86 Calcium 8.7 Total Bilirubin 0.2 AST 55 H Alkaline Phosphatase 152 H Total Protein 5.6 L Albumin 3.0 L Impressions: Chest X-Ray 09/25/19 20:54 IMPRESSION: No evidence of acute cardiopulmonary disease. Assessment & Plan - Diagnosis (1) SIRS due to infectious process without acute organ dysfunction Is this a current diagnosis for this admission?: Yes Plan: Resolved now, next will follow in office (2) Neutropenia associated with infection Is this a current diagnosis for this admission?: Yes Plan: Resolved (3) Diarrhea Qualifiers: Diarrhea type: unspecified type Qualified Code(s): R19.7 - Diarrhea, unspecified Is this a current diagnosis for this admission?: Yes Plan: Resolved (4) Hyponatremia Is this a current diagnosis for this admission?: Yes Plan: Resolved (5) Breast cancer Qualifiers: Breast location: overlapping sites of breast Estrogen receptor status: negative Patient sex: female Laterality: right Qualified Code(s): C50.811 - Malignant neoplasm of overlapping sites of right female breast; Z17.1 - Estrogen receptor negative status [ER-] Is this a current diagnosis for this admission?: Yes Plan: Continue with follow-up next week in office for continued therapy, will need growth factor support for next cycle, discharged today - Time Time Spent with patient: 15-24 minutes
[2019-09-28] MEDS: DOCUSATE SODIUM 100 MG/10 ML UDC PO SCH (10:31)
[2019-09-28] MEDS: CEFEPIME 1 GM/D5W RTU 1 GM/50 ML RTUPB IV SCH (10:32)
[2019-09-28] MEDS: CITALOPRAM HYDROBROMIDE 20 MG TABLET PO SCH (10:34)
[2019-09-28] MEDS: MAGNESIUM OXIDE 400 MG TABLET PO SCH (10:34)
[2019-09-28] MEDS: VALACYCLOVIR HCL 500 MG TABLET PO SCH (10:35)
[2019-09-28] MEDS: ASCORBIC ACID 500 MG TABLET PO SCH (10:35)
[2019-09-28] MEDS: LISINOPRIL 10 MG TABLET PO SCH (10:35)
[2019-09-28] MEDS: MULTIVITAMIN TABLET PO SCH (10:35)
[2019-09-28 14:36] VITALS: BP 132/70
--- NOTE | 2019-09-28 23:40 | EKG REPORT ---
SEVERITY:- BORDERLINE ECG - SINUS RHYTHM BORDERLINE T ABNORMALITIES, ANT-LAT LEADS : Confirmed by: Evelina Ibarra 28-Sep-2019 23:39:11
--- NOTE | 2019-09-29 16:33 | PDOC DISCHARGE SUMMARY ---
Impression - Admit/DC Date/PCP Admission Date/Primary Care Provider: 09/26/19 00:36 SULTANA SPAIN MD Discharge Date: 09/28/19 - Discharge Diagnosis (1) Neutropenic fever Is this a current diagnosis for this admission?: Yes (2) SIRS (systemic inflammatory response syndrome) Is this a current diagnosis for this admission?: Yes (3) Diarrhea Is this a current diagnosis for this admission?: Yes (4) Hyponatremia Is this a current diagnosis for this admission?: Yes (5) Neutropenia associated with infection Is this a current diagnosis for this admission?: Yes (6) Breast cancer Is this a current diagnosis for this admission?: Yes (7) Sepsis Is this a current diagnosis for this admission?: Yes (8) Mouth sore secondary to chemotherapy Is this a current diagnosis for this admission?: Yes - Additional Information Resuscitation Status: Full Code Discharge Diet: As Tolerated Discharge Activity: Activity As Tolerated, Balance Activity w/Rest Referrals: SULTANA SPAIN MD [Primary Care Provider] - Follow up as needed Prescriptions: Nystatin/Dexameth/Diphen [Magic Mouthwash (Omh Formula) Susp] 5 ml PO QID PRN 7 Days #120 ml PRN Reason: Home Medications: Ascorbic Acid [Vitamin C 500 mg Tablet] 1,000 mg PO DAILY 09/26/19 Cetirizine HCl [Zyrtec] 10 mg PO DAILY 09/26/19 Citalopram Hydrobromide [Citalopram HBr] 40 mg PO DAILY 09/26/19 Esomeprazole Magnesium [Nexium 24Hr] 20 mg PO DAILY 09/26/19 Imipramine HCl [Tofranil 25 mg Tablet] 50 mg PO QHS 09/26/19 Levothyroxine Sodium [Synthroid 0.1 mg Tablet] 0.1 mg PO Q6AM 09/26/19 Lidocaine [Lidoderm 5% (700 mg) Transdermal Patch] 1 patch TP DAILYP PRN 09/26/19 Lisinopril [Prinivil 10 mg Tablet] 10 mg PO DAILY 09/26/19 Loperamide HCl [Imodium 2 mg Capsule] 2 mg PO BIDP PRN 09/26/19 Magnesium Chloride 140 mg PO DAILY 09/26/19 Methocarbamol [Robaxin 500 mg Tablet] 1,000 mg PO Q8HP PRN 09/26/19 Multivit-Min/Iron/Folic/Lutein [Centrum Silver Women Tablet] 1 each PO DAILY 09/26/19 Tcph Chemo Regiment 0 unit IV ASDIR PRN MDD FOR BREAST CANCER 09/26/19 Valacyclovir HCl [Valtrex 500 mg Tablet] 500 mg PO DAILY 09/26/19 Nystatin/Dexameth/Diphen [Magic Mouthwash (Omh Formula) Susp] 5 ml PO QID PRN 7 Days #120 ml 09/28/19 History of Present Illiness History of Present Illness: ELIZABETH KYLE is a 64 year old female with a history of hypothyroid, depression and breast cancer on chemotherapy resulting in neutropenia. She is received Neupogen for neutropenia over the last 2 days. She is subsequently developed abdominal pain, diarrhea and fever prompting evaluation in the emergency room where she is found to have neutropenic fever and hyponatremia. She started on vancomycin, cefepime and IV fluid bolus and referred to the hospitalist for admission. She denies ill contacts or suspect meals. Hospital Course Hospital Course: (1) Neutropenic fever Resolved. Vitals WNL. Presented with fever of 102 most likely due to neutropenic fever. Was a started on empiric cefepime, vancomycin, aggressive volume resuscitation and neutropenic precaution. Oncology was consulted.Recommendations noted. All cultures remain negative. (2) SIRS (systemic inflammatory response syndrome) Resolved. All vitals WNL. Presented with fever, tachypnea, tachycardia, and neutropenia most likely due to neutropenic fever and hypovolemia due to chemotherapy-induced diarrhea. Started on aggressive volume cessation, guided bye volume status, antipyretics, broad-spectrum empiric IV antibiotics. Sputum, blood, urine and stool culture obtained which came back negative. (3) Diarrhea Likely due to complication of chemotherapy. Resolved. Was admitted to floor, electrolytes and volume status monitored. (4) Hyponatremia Resolved. Likely due to GI losses. Sodium WNL at the time of discharge. (5) Neutropenia associated with infection Ruled out. No sign of infection patient was most likely due to chemotherapy neutropenia. All cultures remain negative. (6) Breast cancer History of a stage II currently advanced breast cancer, HER-2 positive, Estrogen receptor negative status post bilateral mastectomy. Recently started on adjuvant chemotherapy with PTCH (Perjeta, Taxotere, carboplatin, Herceptin) followed by Dr. Spain as outpatient. Oncology on board. Recommendations noted. Outpatient oncology and PCP follow- up. (7) Sepsis Ruled out. Presented with fever, tachypnea, tachycardia, and neutropenia most likely due to neutropenic fever and hypovolemia due to diarrhea caused by chemotherapy. (8) Mouth sore secondary to chemotherapy Was started on Magic mouthwash with significant improvement. Discharged on Magic mouthwash. Physical Exam Vital Signs: Temp Pulse Resp BP Pulse Ox 97.7 F 96 16 132/70 H 100 09/28/19 13:22 09/28/19 13:22 09/28/19 13:22 09/28/19 13:22 09/28/19 13:22 Intake & Output 09/28/19 09/29/19 09/30/19 06:59 06:59 06:59 Intake Total 840 960 Balance 840 960 Weight 76.3 kg General appearance: PRESENT: no acute distress, well-developed, well-nourished Head exam: PRESENT: atraumatic, normocephalic Neck exam: ABSENT: carotid bruit, JVD, lymphadenopathy, thyromegaly Respiratory exam: PRESENT: clear to auscultation vashti. ABSENT: rales, rhonchi, wheezes GI/Abdominal exam: PRESENT: normal bowel sounds, soft. ABSENT: distended, gu arding, mass, organolmegaly, rebound, tenderness Neurological exam: PRESENT: alert, awake, oriented to person, oriented to place, oriented to time, oriented to situation, CN II-XII grossly intact. ABSENT: motor sensory deficit Skin exam: PRESENT: dry, intact, warm. ABSENT: cyanosis, rash Results Laboratory Results: WBC 7.5 10^3/uL (4.0-10.5) 09/28/19 05:09 RBC 3.27 10^6/uL (3.72-5.28) L 09/28/19 05:09 Hgb 10.9 g/dL (12.0-15.5) L 09/28/19 05:09 Hct 30.6 % (36.0-47.0) L 09/28/19 05:09 MCV 94 fl (80-97) 09/28/19 05:09 MCH 33.2 pg (27.0-33.4) 09/28/19 05:09 MCHC 35.5 g/dL (32.0-36.0) 09/28/19 05:09 RDW 12.6 % (11.5-14.0) 09/28/19 05:09 Plt Count 179 10^3/uL (150-450) 09/28/19 05:09 Lymph % (Auto) Not Reportable 09/28/19 05:09 [place] % (Auto) Not Reportable 09/28/19 05:09 Eos % (Auto) Not Reportable 09/28/19 05:09 Baso % (Auto) Not Reportable 09/28/19 05:09 Absolute Neuts (auto) Not Reportable 09/28/19 05:09 Absolute Lymphs (auto) Not Reportable 09/28/19 05:09 Absolute Monos (auto) Not Reportable 09/28/19 05:09 Absolute Eos (auto) Not Reportable 09/28/19 05:09 Absolute Basos (auto) Not Reportable 09/28/19 05:09 Total Counted 100 09/28/19 05:09 Seg Neutrophils % Not Reportable 09/28/19 05:09 Seg Neuts % (Manual) 56 % (42-78) 09/28/19 05:09 Band Neutrophils % 7 % (3-5) H 09/28/19 05:09 Lymphocytes % (Manual) 27 % (13-45) 09/28/19 05:09 Atypical Lymphs % 2 % (0) 09/28/19 05:09 Monocytes % (Manual) 8 % (3-13) 09/28/19 05:09 Eosinophils % (Manual) 0 % (0-6) 09/28/19 05:09 Basophils % (Manual) 0 % (0-2) 09/28/19 05:09 Abs Neuts (Manual) 4.7 10^3/uL (1.7-8.2) 09/28/19 05:09 Abs Lymphs (Manual) 2.2 10^3/uL (0.5-4.7) 09/28/19 05:09 Abs Monocytes (Manual) 0.6 10^3/uL (0.1-1.4) 09/28/19 05:09 Absolute Eos (Manual) 0.0 10^3/uL (0.0-0.6) 09/28/19 05:09 Abs Basophils (Manual) 0.0 10^3/uL (0.0-0.2) 09/28/19 05:09 Toxic Granulation 1+ 09/26/19 04:46 Platelet Comment ADEQUATE 09/28/19 05:09 Poikilocytosis SLIGHT 09/26/19 04:46 Ovalocytes SLIGHT 09/26/19 04:46 Luther Cells SLIGHT 09/26/19 04:46 RBC Morph Comment NORMO-CYTIC/CHROMIC 09/28/19 05:09 Sodium 137.5 mmol/L (137-145) 09/28/19 05:09 Potassium 3.8 mmol/L (3.6-5.0) 09/28/19 05:09 Chloride 105 mmol/L (98-107) 09/28/19 05:09 Carbon Dioxide 27 mmol/L (22-30) 09/28/19 05:09 Anion Gap 6 (5-19) 09/28/19 05:09 BUN 7 mg/dL (7-20) 09/28/19 05:09 Creatinine 0.62 mg/dL (0.52-1.25) 09/28/19 05:09 Est GFR ( Amer) > 60 (>60) 09/28/19 05:09 Est GFR (MDRD) Non-Af > 60 (>60) 09/28/19 05:09 Glucose 86 mg/dL (75-110) 09/28/19 05:09 Lactic Acid 1.0 mmol/L (0.7-2.1) 09/25/19 21:30 Calcium 8.7 mg/dL (8.4-10.2) 09/28/19 05:09 Magnesium 1.6 mg/dL (1.6-2.3) 09/27/19 04:36 Total Bilirubin 0.2 mg/dL (0.2-1.3) 09/28/19 05:09 Direct Bilirubin 0.0 mg/dL (0.0-0.4) 09/28/19 05:09 Neonat Total Bilirubin Not Reportable 09/28/19 05:09 Neonat Direct Bilirubin Not Reportable 09/28/19 05:09 Neonat Indirect Bili Not Reportable 09/28/19 05:09 AST 55 U/L (14-36) H 09/28/19 05:09 ALT 55 U/L (<35) 09/28/19 05:09 Alkaline Phosphatase 152 U/L (38-126) H 09/28/19 05:09 Total Protein 5.6 g/dL (6.3-8.2) L 09/28/19 05:09 Albumin 3.0 g/dL (3.5-5.0) L 09/28/19 05:09 Urine Color STRAW 09/25/19 22:43 Urine Appearance CLEAR 09/25/19 22:43 Urine pH 7.0 (5.0-9.0) 09/25/19 22:43 Ur Specific [place] 1.003 09/25/19 22:43 Urine Protein NEGATIVE mg/dL (NEGATIVE) 09/25/19 22:43 Urine Glucose (UA) NEGATIVE mg/dL (NEGATIVE) 09/25/19 22:43 Urine Ketones 20 mg/dL (NEGATIVE) H 09/25/19 22:43 Urine Blood NEGATIVE (NEGATIVE) 09/25/19 22:43 Urine Nitrite NEGATIVE (NEGATIVE) 09/25/19 22:43 Urine Bilirubin NEGATIVE (NEGATIVE) 09/25/19 22:43 Urine Urobilinogen NEGATIVE mg/dL (<2.0) 09/25/19 22:43 Ur Leukocyte Esterase NEGATIVE (NEGATIVE) 09/25/19 22:43 Urine WBC (Auto) 0 /HPF 09/25/19 22:43 Urine RBC (Auto) 0 /HPF 09/25/19 22:43 Squamous Epi Cells Auto <1 /HPF 09/25/19 22:43 Urine Ascorbic Acid NEGATIVE (NEGATIVE) 09/25/19 22:43 Stl C. Difficile GDH Ag Cancelled 09/26/19 22:54 Stl C.difficile Tox A&B Cancelled 09/26/19 22:54 Influenza A (Rapid) NEGATIVE (NEGATIVE) 09/25/19 21:15 Influenza B (Rapid) NEGATIVE (NEGATIVE) 09/25/19 21:15 Slides for Path Review PATHOLOGIST REVIEWED 09/25/19 21:30 Impressions: Chest X-Ray 09/25/19 20:54 IMPRESSION: No evidence of acute cardiopulmonary disease. Plan Time Spent: Greater than 30 Minutes Stroke Is this a Stroke Patient?: No Acute Heart Failure - Is this a Heart Failure Patient?: No
== END 2019-09-28 15:00 | disposition home or self-care (01) | DRG 809 ==
LOC: ER 20:41 → EH 09-26 00:36 → 5 09-26 01:42
PROVIDERS: ADMIT Internal Medicine; ATTEND Internal Medicine
DX: D70.2 Other drug-induced agranulocytosis (principal); E87.1 Hypo-osmolality and hyponatremia; K52.1 Toxic gastroenteritis and colitis; R50.81 Fever presenting with conditions classified elsewhere; C50.919 Malignant neoplasm of unspecified site of unspecified female breast; K13.79 Other lesions of oral mucosa; E03.9 Hypothyroidism, unspecified; F32.9 Major depressive disorder, single episode, unspecified; T45.1X5A Adverse effect of antineoplastic and immunosuppressive drugs, initial encounter; E86.0 Dehydration; I10 Essential (primary) hypertension; Z79.890 Hormone replacement therapy; Z79.899 Other long term (current) drug therapy; Z17.0 Estrogen receptor positive status [ER+]; Z90.13 Acquired absence of bilateral breasts and nipples; Z88.2 Allergy status to sulfonamides; Z82.49 Family history of ischemic heart disease and other diseases of the circulatory system
CPT/HCPCS: 36415; 71045; 80048; 80053; 81001; 83605; 83735; 85025; 87040; 87045; 87205; 87804; 93005; 93010; 96361; 96365; 99291; J0692; J1442; J1644; J3370; J3490; J7030; J7060; J7120

== ENCOUNTER 2019-11-03 14:25 | Emergency (ER) | payer OTHER ==
[2019-11-03] MEDS ORDERED: METOCLOPRAMIDE HCL INJ/PF 10 MG/2 ML SDV IV ONE (14:37)
[2019-11-03] MEDS ORDERED: NORMAL SALINE 1000 ML 1,000 ML IV ONE ×2 (14:37→16:25)
--- NOTE | 2019-11-03 14:39 | ER Document Report ---
ED Medical Screen (RME) - General Chief Complaint: Nausea/Vomiting/Diarrhea Stated Complaint: DIZZINESS/VOMITING/DIARRHEA Time Seen by Provider: 11/03/19 14:32 Primary Care Provider: SULTANA SPAIN MD [Primary Care Provider] - Follow up as needed Mode of Arrival: Wheelchair Information source: Patient Notes: This 64-year-old female with history of breast cancer presents emergency department with complaints of nausea vomiting diarrhea for the past [address] Alonzo called triage prior to arrival. She reports she is worried patient may be dehydrated. Denies fevers. Patient looks very uncomfortable. I have greeted and performed a rapid initial assessment of this patient. A comprehensive ED assessment and evaluation of the patient, analysis of test re sults and completion of the medical decision making process will be conducted by additional ED providers. TRAVEL OUTSIDE OF THE [place] IN LAST 30 DAYS: No - Related Data Allergies/Adverse Reactions: Sulfa (Sulfonamide Antibiotics) Allergy (Verified 09/21/19 20:42) Past Medical History - Social History Chew tobacco use (# tins/day): No Frequency of alcohol use: None Drug Abuse: None - Past Medical History Cardiac Medical History: Reports: Hx Hypertension Malignancy Medical History: Reports: Hx Breast Cancer Psychiatric Medical History: Reports: Hx Depression Past Surgical History: Reports: Hx Mastectomy, Hx Tonsillectomy Doctor's Discharge - Discharge Referrals: SULTANA SPAIN MD [Primary Care Provider] - Follow up as needed
[2019-11-03] MEDS ORDERED: DICYCLOMINE HCL 20 MG TABLET PO ONE (15:19)
[2019-11-03 15:26] LABS: HEMATOCRIT 32.4 % (36.0-47.0); HEMOGLOBIN 11.7 g/dL (12.0-15.5); MEAN CORPUSCULAR HEMOGLOBIN 34.1 pg (27.0-33.4); MEAN CORPUSCULAR VOLUME 95 fl (80-97); PLATELET COUNT 423 10^3/uL (150-450); RED BLOOD COUNT 3.43 10^6/uL (3.72-5.28); RED CELL DISTRIBUTION WIDTH 17.1 % (11.5-14.0); WHITE BLOOD COUNT 6.3 10^3/uL (4.0-10.5)
[2019-11-03 15:39] LABS: ALBUMIN 3.9 g/dL (3.5-5.0); ALKALINE PHOSPHATASE 135 U/L (38-126); ANION GAP 15 (5-19); ASPARTATE AMINO TRANSFERASE 25 U/L (14-36); BILIRUBIN,DIRECT 0.2 mg/dL (0.0-0.4); BILIRUBIN,TOTAL 0.7 mg/dL (0.2-1.3); BLOOD UREA NITROGEN 25 mg/dL (7-20); CALCIUM 9.5 mg/dL (8.4-10.2); CARBON DIOXIDE 20 mmol/L (22-30); CHLORIDE 97 mmol/L (98-107); GLUCOSE 113 mg/dL (75-110); POTASSIUM 3.5 mmol/L (3.6-5.0)
--- NOTE | 2019-11-03 15:49 | ER Document Report ---
ED General - General Chief Complaint: Nausea/Vomiting/Diarrhea Stated Complaint: DIZZINESS/VOMITING/DIARRHEA Time Seen by Provider: 11/03/19 14:32 Primary Care Provider: SULTANA SPAIN MD [Primary Care Provider] - Follow up as needed Mode of Arrival: Wheelchair TRAVEL OUTSIDE OF THE [place] IN LAST 30 DAYS: No - HPI Notes: Patient is a 64-year-old female stage II breast cancer on chemotherapy with last treatment this past Monday presents per direction of her oncologist, Dr. Earl/Tangela, for dehydration. She has been having nausea and vomiting with diarrhea. The n/v has been ongoing for the past 2-3 days and diarrhea x1-2 days. She states the diarrhea is watery. Pt states that she normally gets this way after chemo treatments. She does have abd cramping associated. No focal pain. No other concerns or complaints. No hematemesis, hematochezia, melena. Denies any headache, fever, neck pain, URI, sore throat, chest pain, palpitations, syncope, cough, shortness of breath, wheeze, dyspnea, urinary retention, dysuria, hematuria, or rash. - Related Data Allergies/Adverse Reactions: Sulfa (Sulfonamide Antibiotics) Allergy (Verified 09/21/19 20:42) Past Medical History - General Information source: Patient - Social History Smoking Status: Never Smoker Chew tobacco use (# tins/day): No Frequency of alcohol use: None Drug Abuse: None Family History: Hypertension Patient has suicidal ideation: No Patient has homicidal ideation: No - Past Medical History Cardiac Medical History: Reports: Hx Hypertension Malignancy Medical History: Reports: Hx Breast Cancer Psychiatric Medical History: Reports: Hx Depression Past Surgical History: Reports: Hx Mastectomy, Hx Tonsillectomy Review of Systems - Review of Systems -: Yes All other systems reviewed and negative Physical Exam - Vital signs Vitals: Resp 31 H 11/03/19 14:48 - Notes Notes: PHYSICAL EXAMINATION: GENERAL: no acute resp distress. HEAD: Atraumatic, normocephalic. EYES: Pupils equal round and reactive to light, extraocular movements intact, sclera anicteric, conjunctiva are normal. ENT: Nares patent and without discharge. oropharynx clear without exudates. No tonsilar hypertrophy or erythema. Dry mucous membranes. Dry lips. NECK: Normal range of motion, supple without lymphadenopathy LUNGS: Breath sounds clear to auscultation bilaterally and equal. No wheezes rales or rhonchi. HEART: Regular rate and rhythm without murmurs, rubs, gallops. ABDOMEN: Soft, nontender, nondistended abdomen. No guarding, no rebound. Normal bowel sounds present. No CVA tenderness bilaterally. Musculoskeletal: FROM to passive/active. Strength 5+/5. Extremities: No cyanosis, clubbing, or edema b/l. Peripheral pulses 2+. Capillary refill less than 3 seconds. NEUROLOGICAL: Cranial nerves grossly intact. Normal speech, normal gait. PSYCH: Normal mood, normal affect. SKIN: Warm, Dry, normal turgor, no rashes or lesions noted. Course - Re-evaluation Re-evalutation: 11/03/19 15:52 I did discuss case with Dr. Earl. As long as patient is doing well and can tolerate PO we will consider discharge home. If she continues to have n/v and cannot tolerate PO we will admit. 11/03/19 16:52 Pt states that she is feeling much better. We will finish the 2nd liter of fluid and try to get a Urine from her. Consider discharge thereafter as long as she is able to tolerate PO. Pt in agreement. 11/03/19 17:55 Patient is an afebrile, well-hydrated, 64-year-old female who presents with dehy dration in the setting of nausea/vomiting/diarrhea secondary to her chemotherapy. Vitals are currently acceptable without significant tachycardia, tachypnea, hypotension, or hypoxia. PE is otherwise unremarkable. Patient's abdomen is soft nontender. She is nontoxic-appearing and is tolerating p.o. at this time without difficulty. Labs are acceptable. Low suspicion/risk for neutropenic fever, acute appendicitis, bowel obstruction, acute cholecystitis, acute cholangitis, perforated diverticulitis, incarcerated hernia, pancreatitis, perforated ulcer, peritonitis, sepsis, pelvic inflammatory disease, ectopic , tubo-ovarian abscess, ovarian torsion, or other systemic emergent condition at this time. Patient is aware that her condition can change from initial presentation and she needs to monitor symptoms closely and seek medical attention if any acute changes. Conservative measures otherwise for symptoms. Recheck with your PCM/oncologist in 2-3 days. Return to the ED with any worsening/concerning symptoms otherwise as reviewed in discharge. Patient is in agreement. - Vital Signs Vital signs: Temp Pulse Resp BP Pulse Ox 17 129/72 H 98 11/03/19 17:01 11/03/19 17:01 11/03/19 17:01 - Laboratory Result Diagrams: 11/03/19 14:57 11/03/19 14:57 Laboratory results interpreted by me: 11/03/19 11/03/19 14:57 14:57 RBC 3.43 L Hgb 11.7 L Hct 32.4 L MCH 34.1 H RDW 17.1 H Monocytes % (Manual) 15 H Sodium 131.9 L Potassium 3.5 L Chloride 97 L Carbon Dioxide 20 L BUN 25 H Glucose 113 H Alkaline Phosphatase 135 H Discharge - Discharge Clinical Impression: Nausea vomiting and diarrhea Condition: Stable Disposition: HOME, SELF-CARE Additional Instructions: Maintain adequate fluid and food intake [place] diet (B.R.A.T.) Bananas, rice, apples, toast, etc Use your nausea medicine as needed tylenol if needed Monitor for any worsening symptoms Make sure you are staying hydrated enough to urinate and have normal BM's Recheck with your PCM/oncologist in 2-3 days Return to the ED with any worsening symptoms and/or development of fever, headache, chest pain, palpitations, syncope, shortness of breath, trouble breathing, abdominal pain, n/v/d, blood in stool/urine, weakness, or other worsening symptoms that are concerning to you. Forms: Elevated Blood Pressure Referrals: SULTANA SPAIN MD [Primary Care Provider] - 11/05/19
[2019-11-03 16:07] LABS: ABSOLUTE LYMPHOCYTES# (MANUAL) 2.3 10^3/uL (0.5-4.7); ABSOLUTE MONOCYTES # (MANUAL) 0.9 10^3/uL (0.1-1.4); BASOPHILS % (MANUAL) 0 % (0-2); EOSINOPHILS % (MANUAL) 0 % (0-6); LYMPHOCYTES % (MANUAL) 37 % (13-45); MONOCYTES % (MANUAL) 15 % (3-13); SEGMENTED NEUTROPHILS % (MAN) 48 % (42-78); TOTAL CELLS COUNTED 100
[2019-11-03 16:08] LABS: ANISOCYTOSIS 1+; OVALOCYTES SLIGHT; PLATELET COMMENT ADEQUATE; PLATELET LARGE PRESENT
[2019-11-03 17:37] LABS: APPEARANCE,URINE CLEAR; BILIRUBIN,URINE NEGATIVE (NEGATIVE); COLOR,URINE YELLOW; GLUCOSE, URINE NEGATIVE (NEGATIVE); KETONES,URINE NEGATIVE (NEGATIVE); LEUKOCYTE ESTERASE,URINE NEGATIVE (NEGATIVE); NITRITE,URINE NEGATIVE (NEGATIVE); PROTEIN,URINE NEGATIVE (NEGATIVE); URINE SPECIFIC GRAVITY 1.005; UROBILINOGEN,URINE NEGATIVE mg/dL (<2.0)
[2019-11-03 18:06] VITALS: BP 138/80
== END 2019-11-03 18:28 | disposition home or self-care (01) ==
LOC: ER 14:25
DX: R11.2 Nausea with vomiting, unspecified (principal); K52.1 Toxic gastroenteritis and colitis; T45.1X5A Adverse effect of antineoplastic and immunosuppressive drugs, initial encounter; C50.919 Malignant neoplasm of unspecified site of unspecified female breast; E86.0 Dehydration; I10 Essential (primary) hypertension; Z79.899 Other long term (current) drug therapy; Z88.2 Allergy status to sulfonamides
CPT/HCPCS: 36591; 99284; 96361; 96374; 36415; 83690; 85025; 80053; 81001; J3490; J2765; J7030; J1642

== ENCOUNTER → 2020-01-22 | Outpatient (CLI) | payer OTHER ==
--- NOTE | 2020-01-22 20:52 | XCELERA REPORT ---
[address] [address] Transthoracic Echocardiogram Report Name: ELIZABETH KYLE Age: 64 yrs Gender: Female : 1955 Patient Status: Outpatient Patient Location: [facility] Study Date: 01/22/2020 08:35 AM Height: 60 in Weight: 160 lb BSA: 1.7 m2 Reason For Study: BREAST CANCER Ordering Physician: SULTANA SPAIN Performed By: Stephanie Lerma Interpretation Summary Difficult study due to breast tissue expansion. study performed by JS and BG. The first echo was a disaster with no echo info available. The second attempt was also nearly useless but may show 10 % more info than first attempt, but 2 D measurements were done in the wrong part of the cardiac cycle., eg LV internal dimension measured in early diastole instead of end systole.. Over, Do not rely on this study to do serial assessment of LVEF to guide use of dosage for chemotherapy, Better off to do serial resting MUGA study. Findings LVEF probably 55-60%,Mild MR No LVH, with hypokinetic inferoseptal wall, lateral wall normal, other mcmillan not visualized. RH probably function normal. No ASD. Summary : consider using Resting MUGA for LVEF tracking. MMode/2D Measurements & Calculations RVDd: 1.7 cm LVIDd: 4.4 cm FS: 27.5 % Ao root diam: 2.3 cm IVSd: 0.89 cm LVIDs: 3.2 cm EDV(Teich): 87.9 ml LVPWd: 0.78 cm ESV(Teich): 40.8 ml Ao root area: 4.3 cm2 LA dimension: 3.4 cm EF(Teich): 53.6 % Doppler Measurements & Calculations MV E max soren: MV P1/2t max soren: Ao V2 max: LV V1 max P.1 cm/sec 153.6 cm/sec 131.9 cm/sec 3.4 mmHg MV A max soren: MV P1/2t: 48.7 msec Ao max P.0 mmHgLV V1 max: 39.5 cm/sec MVA(P1/2t): 4.5 cm2 92.2 cm/sec MV E/A: 3.5 MV dec slope: 923.3 cm/sec2 MV dec time: 0.13 sec PA V2 max: TR max soren: MV P1/2t-pr_phl: 69.2 cm/sec 200.9 cm/sec 48.7 msec PA max P.9 mmHg TR max P.1 mmHg : SULTANA SPAIN Andre
== END ==
LOC: SP 08:11
PROVIDERS: ATTEND Internal Medicine
DX: C50.212 Malignant neoplasm of upper-inner quadrant of left female breast (principal); R06.02 Shortness of breath
CPT/HCPCS: 93306

== ENCOUNTER → 2020-05-12 | Outpatient (CLI) | payer OTHER ==
--- NOTE | 2020-05-13 01:05 | XCELERA REPORT ---
[address] [address] Transthoracic Echocardiogram Report Name: ELIZABETH KYLE Age: 65 yrs Gender: Female : 1955 Patient Status: Outpatient Patient Location: Study Date: 05/12/2020 07:16 AM Height: 64 in Weight: 165 lb BSA: 1.8 m2 Procedure: A complete two-dimensional transthoracic echocardiogram was performed (2D, M-mode, spectral and color flow Doppler). The study was technically adequate with some images being suboptimal in quality. Reason For Study: PT. ON CHEMOTHERAPY Ordering Physician: FATOUMATA LANDERS Performed By: Stephanie Lerma Interpretation Summary FINDINGS: LEFT VENTRICLE: LV Systolic function: LVEF is felt to be within normal limits. Best estimate is approximately LVEF is 60 to 65%. LV Diastolic Function: No diastolic dysfunction noted. Wall motion: No definite regional wall motion abnormalities are noted. Left ventricular chamber size: is within normal limit. Left ventricular wall thickness: wnl. RIGHT VENTRICLE: RV systolic function: is felt to be within normal limit. Right Ventricle Size: is within normal limits. LEFT ATRIUM size: is within normal limit. RIGHT ATRIUM size: is within normal limit. INTER ATRIAL SEPTUM: No definite atrial septal defect noted however a small PFO could be missed. AORTIC ROOT: seems to be within normal limits. ASCENDING AORTA: is not well visualized. INFERIOR VENA CAVA: was not well visualized. VALVES: MITRAL VALVE: Leaflets are mildly thickened. Mobility seems to be within normal limits. Mitral Regurgitation: mild mitral regurgitation is noted. Mitral Stenosis: No mitral stenosis noted. Mitral valve prolapse: none noted. AORTIC VALVE: seems to be trileaflet with mild thickening but adequate excursion. Aortic stenosis: No aortic stenosis noted. Aortic regurgitation: trace aortic incompetence noted. TRICUSPID VALVE: mobility and structures within normal limit. Tricuspid stenosis: no tricuspid stenosis noted. Tricuspid regurgitation: Trace tricuspid regurgitation noted. Estimated RVSP: upper limit of normal. PULMONARY VALVE: was not well visualized but no significant abnormalities suspected. Pulmonary stenosis: no pulmonary stenosis noted. Pulmonary regurgitation: no significant pulmonary regurgitation noted. MASSES AND THROMBUS: No definite intracardiac thrombus or masses are noted. PERICARDIUM: No pericardial effusion was noted. IMPRESSION: 1. Normal LVEF. Best estimate approximately 60%. 2. Normal chamber sizes noted. No LVH noted. 3. No significant Diastolic Dysfunction noted. 4. Mild mitral and trace aortic regurgitation noted. 5. Patient noted to be tachycardic during the study. MMode/2D Measurements & Calculations RVDd: 1.9 cm LVIDd: 4.6 cm FS: 30.5 % Ao root diam: 2.5 cm IVSd: 0.80 cm LVIDs: 3.2 cm EDV(Teich): 98.1 ml Ao root area: 4.7 cm2 LVPWd: 0.85 cm ESV(Teich): 41.3 ml EF(Teich): 57.9 % Doppler Measurements & Calculations MV E max soren: MV dec slope: Ao V2 max: LV V1 max P.2 cm/sec 720.5 cm/sec2 132.7 cm/sec 3.2 mmHg MV dec time: 0.15 sec Ao max PG: LV V1 max: 7.0 mmHg 89.7 cm/sec MR max soren: PA V2 max: 501.2 cm/sec 76.0 cm/sec MR max PG: PA max P.3 mmHg 100.5 mmHg : FATOUMATA LANDERS Shyamal
== END ==
LOC: SP 08:00
PROVIDERS: ATTEND Physician Assistant Medical
DX: C50.212 Malignant neoplasm of upper-inner quadrant of left female breast (principal); Z79.899 Other long term (current) drug therapy
CPT/HCPCS: 93306